=== PATIENT | female | born 1945 | race Caucasian/White ===

== ENCOUNTER 2024-01-19 14:20 | Outpatient (CLI) | payer MEDICARE | END 2024-01-19 14:21 | disposition home or self-care (01) | LOC: BICMAMMO 14:20 | PROVIDERS: ATTEND Internal Medicine | DX: N63.21 Unspecified lump in the left breast, upper outer quadrant (principal); N60.02 Solitary cyst of left breast | CPT/HCPCS: 76642; 77065; G0279 ==

== ENCOUNTER 2024-10-26 10:54 | Outpatient (CLI) | payer MEDICARE | END 2024-10-26 10:55 | disposition home or self-care (01) | LOC: BICCT 10:54 | PROVIDERS: ATTEND Physician Assistant | DX: R09.81 Nasal congestion (principal); J34.89 Other specified disorders of nose and nasal sinuses ==